=== PATIENT | male | born 1975 | race Caucasian/White ===

== ENCOUNTER 2017-04-06 11:31 | Emergency (ER) | payer MEDICARE ==
[~2017-04-06] VITALS: Ht 188 cm; Wt 140.0 kg
[~2017-04-06 11:31] MED LIST: BACT2OIN TOP; BACT800T5 PO; DOXE100C4 PO; METO25 PO; PALI234P IM; PERC5TAB12 PO
[2017-04-06 11:33] VITALS: BP 175/102; PULSE 96; RESP 16; TEMP 98.3; O2SAT 97
--- NOTE | 2017-04-06 12:51 | PD ---
HPI . right ear pain x few days Chief Complaint: ENT Complaint Time Seen by Provider: 12:50 Travel History International Travel<30 days: No Contact w/Intl Traveler<30days: No Traveled to known affect area: No History of Present Illness HPI 41 yr old male here with c/o right ear pain x several days. He reports trying to clean his ear out a few days ago and thinks he may have irritated something. Now he reports pain in the ear canal and tenderness to touch. He denies any fever, chills, or drainage. PFSH Past Medical History Autoimmune Disease: No Blood Disorders: No Cancer: No Cardiovascular Problems: No Chemotherapy: No Genitourinary: No Musculoskeletal: No Neurologic: No Psychiatric: No Respiratory: No Radiation Therapy: No Schizophrenia: Yes Past Surgical History Genitourinary Surgery: No Pacemaker: No Social History Alcohol Use: Yes (occ) Tobacco Use: Yes Substance Use: No Allergies-Medications (Allergen,Severity, Reaction): Coded Allergies: Penicillin (Verified Allergy, Severe, 06/20/16) Reported Meds & Prescriptions Reported Meds & Active Scripts Active Ofloxacin Otic Drops 0.3 % Drops 10 Drop RIGHT EAR DAILY 7 Days Bactrim DS (Sulfamethoxazole-Trimethoprim DS) 1 Tab Tab 1 Tab PO BID 10 Days Mupirocin 2% Oint (22 gm) (Mupirocin) 2 % Oin 1 Applic TOP BID 14 Days Percocet 5-325 mg (Oxycodone/Acetaminophen) 1 Tab 1 Tab PO Q4H PRN Reported Metoprolol Tartrate 25 mg (Metoprolol Tartrate) 25 Mg Tab 25 Mg PO DAILY Invega Sustenna (Paliperidone Palmitate) 234 Mg/1.5 Ml Inj 234 Mg IM Q28D *FOR INTRAMUSCULAR USE ONLY* Doxepin 100 mg (Doxepin HCl) 100 Mg Cap 200 Mg PO HS Review of Systems General / Constitutional: No: Fever Eyes: No: Visual changes HENT: Positive: Earache, No: Headaches Cardiovascular: No: Chest Pain or Discomfort Respiratory: No: Shortness of Breath Gastrointestinal: No: Abdominal Pain Genitourinary: No: Dysuria Musculoskeletal: No: Pain Skin: No Rash Neurologic: No: Weakness Psychiatric: No: Depression Endocrine: No: Polydipsia Hematologic/Lymphatic: No: Easy Bruising Physical Exam Narrative GENERAL: AAO x 3, no acute distress, Well-nourished, well-developed patient. SKIN: Warm and dry. No visible rashes or bruising. HEAD: Normocephalic and atraumatic. EYES: No scleral icterus. No injection or drainage. ENT: No nasal drainage noted. Mucous membranes pink. Airway patent. tenderness to right tragus, ++ edema in ear canal and erythema, TM appears normal NECK: Supple, trachea midline. No JVD. No lymphadenopathy CARDIOVASCULAR: Regular rate and rhythm without murmurs, gallops, or rubs. RESPIRATORY: Breath sounds equal bilaterally. No accessory muscle use. No rhonchi or rales. GASTROINTESTINAL: visual inspection normal EXTREMITIES: No cyanosis or edema. BACK: No obvious deformity. NEURO: CN II-12 intact, PSYCH: AAO x 3, normal affect. Data Data Last Documented VS Vital Signs Date Time Temp Pulse Resp B/P Pulse Ox O2 Delivery O2 Flow Rate FiO2 04/06/17 11:33 98.3 96 16 175/102 97 Room Air MDM Medical Decision Making Medical Screen Exam Complete: Yes Emergency Medical Condition: Yes Medical Record Reviewed: Yes Differential Diagnosis otitis externa, otitis media, mastoiditis Narrative Course 41 yr old male here with c/o right ear pain. He has known hx of HTN and will f/ u with his pcp regarding his elevated bp. On exam he has right otitis externa. I discussed treatment with him. We discussed $ of meds and he was upset. I advised him that I would prescribe the cheapest option I am aware of that would provide relief. Tylenol or Motrin PRN pain. Diagnosis Primary Impression: Otitis externa of right ear Qualified Code: H60.311 - Acute diffuse otitis externa of right ear Patient Instructions: General Instructions Additional Instructions: Please return to emergency department if your symptoms return or worsen. Follow up with your primary care provider. Take medications as prescribed. Take Tylenol or Motrin as needed for pain. Med/Other Pt SpecificInfo: Prescription(s) given Scripts Ofloxacin Otic Drops 0.3 % Drops10 Drop RIGHT EAR DAILY 7 Days Ref 0 Prov:Malissa Hathaway DO 04/06/17 Disposition: 01 DISCHARGE HOME Condition: Stable Litzy Mosqueda Apr 06, 2017 12:51
[2017-04-06] MEDS ORDERED: OFLO0.3D9 RIGHT EAR (12:56)
[2017-04-06 13:15] VITALS: BP 159/86; TEMP 97.8
[2017-04-06] MEDS ORDERED: PALI234P IM (13:27)
[2017-04-06] MEDS ORDERED: METO25TA6 PO (13:27)
[2017-04-06] MEDS ORDERED: DOXE100C4 PO (13:27)
== END 2017-04-06 13:15 | disposition home or self-care (01) ==
LOC: NEPK 11:31
DX: H60.91 Unspecified otitis externa, right ear (principal); I10 Essential (primary) hypertension; F20.9 Schizophrenia, unspecified; Z79.899 Other long term (current) drug therapy; Z88.0 Allergy status to penicillin; Z72.0 Tobacco use
CPT/HCPCS: 99283

== ENCOUNTER 2017-05-16 11:56 | Emergency (ER) | payer OTHER, MEDICARE ==
[~2017-05-16] VITALS: Ht 188 cm; Wt 131.5 kg
[~2017-05-16 11:56] MED LIST changes: -BACT2OIN TOP; -BACT800T5 PO; -METO25 PO; +METO25TA6 PO; +OFLO0.3D9 RIGHT EAR; -PERC5TAB12 PO
[2017-05-16 11:57] VITALS: BP 171/118; PULSE 112; RESP 24; TEMP 98.5; O2SAT 97
[2017-05-16] MEDS ORDERED: DIAZ5 PO (12:12)
[2017-05-16] MEDS ORDERED: BENZ0.5T PO (12:13)
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
[2017-05-16] MEDS ORDERED: IBUP-232 PO (13:15)
[2017-05-16] MEDS ORDERED: BACT800T5 PO (13:15)
== END 2017-05-16 14:14 | disposition home or self-care (01) ==
LOC: NEPD 11:56
DX: S80.01XA Contusion of right knee, initial encounter (principal); V43.62XA Car passenger injured in collision with other type car in traffic accident, initial encounter; Y92.414 Local residential or business street as the place of occurrence of the external cause; L03.111 Cellulitis of right axilla; I10 Essential (primary) hypertension
CPT/HCPCS: 73564; 99283; E0113

== ENCOUNTER 2017-06-28 10:36 | Emergency (ER) | payer MEDICARE ==
[~2017-06-28] VITALS: Ht 188 cm; Wt 115.0 kg
[~2017-06-28 10:36] MED LIST changes: +BACT800T5 PO; +BENZ0.5T PO; +DIAZ5 PO; +IBUP-232 PO; -OFLO0.3D9 RIGHT EAR
[2017-06-28 10:39] VITALS: BP 167/109; PULSE 84; RESP 15; TEMP 98.6; O2SAT 95
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
== END 2017-06-28 13:24 | disposition left against medical advice (07) ==
LOC: NEPD 10:36
DX: R60.0 Localized edema (principal); F17.200 Nicotine dependence, unspecified, uncomplicated
CPT/HCPCS: 99281

== ENCOUNTER 2018-03-11 09:12 | Emergency (ER) | payer MEDICARE ==
[~2018-03-11] VITALS: Ht 188 cm; Wt 100.0 kg
[~2018-03-11 09:12] MED LIST changes: -BACT800T5 PO; -DOXE100C4 PO; -IBUP-232 PO; +METO1TAB42 PO; -METO25TA6 PO
[2018-03-11 09:21] VITALS: BP 151/101; PULSE 75; RESP 16; TEMP 97.6; O2SAT 97
[2018-03-11] MEDS ORDERED: CLIN300C5 PO (09:44)
[2018-03-11] MEDS ORDERED: MAGICADU2 SWISH-SPIT (09:44)
--- NOTE | 2018-03-11 09:44 | PD ---
HPI Chief Complaint: Oral / Dental Pain or Problem Time Seen by Provider: 09:37 Travel History International Travel<30 days: No Contact w/Intl Traveler<30days: No Traveled to known affect area: No History of Present Illness HPI Patient presents to the ER for evaluation of left mandibular dental pain. Denies fevers, swelling, difficulty swallowing or neck pain. States for about a week. has not seen a dentist in some time. Endorses smoking. Thinks it's infected. States the pain is actually pretty mild but he's requesting antibiotics. PFSH Past Medical History Autoimmune Disease: No Blood Disorders: No Anxiety: Yes Cancer: No Cardiovascular Problems: Yes Chemotherapy: No Diminished Hearing: No Genitourinary: No Hypertension: Yes Musculoskeletal: No Neurologic: No Psychiatric: Yes Respiratory: No Radiation Therapy: No Schizophrenia: Yes Past Surgical History Genitourinary Surgery: No Pacemaker: No Other Surgery: Yes (RIGHT AXILLA CYST/ABSCESS I/D) Social History Alcohol Use: Yes (OCCASSIONAL) Tobacco Use: Yes (1.5 PPD) Substance Use: No Allergies-Medications (Allergen,Severity, Reaction): Coded Allergies: penicillin G (Unverified Allergy, Severe, RASH, 05/16/17) Reported Meds & Prescriptions Reported Meds & Active Scripts Active Magic Mouthwash Adult Liq (Multi-Ingredient Mouthwash/Gargle) 120 Ml Susp 5 Ml SWISH-SPIT ACHS Each 5mL contains: Nystatin 200,000units, Diphenhydramine 4.25mg, Viscous Lidocaine 10mg, Hawkins syrup 0.8 mL Clindamycin (Clindamycin HCl) 300 Mg Cap 300 Mg PO Q6H 10 Days Reported Benztropine (Benztropine Mesylate) 0.5 Mg Tab 1 Mg PO HS Valium (Diazepam) 5 Mg Tab 5 Mg PO BID PRN Invega Sustenna Inj (Paliperidone Palmitate) 234 Mg/1.5 Ml Inj 234 Mg IM Q28D Metoprolol Succinate ER 24 HR (Metoprolol Succinate) 25 Mg Tab 25 Mg PO DAILY Review of Systems Except as stated in HPI: all other systems reviewed are Neg Physical Exam Narrative GENERAL: WD/WN in nad. SKIN: Warm and dry. HEAD: Normocephalic. EYES: No scleral icterus. No injection or drainage. ENT: Left 2nd molar with deep altaf. No abscess seen. no trismus, no tongue protrusion. NECK: Supple, trachea midline. No JVD or lymphadenopathy. CARDIOVASCULAR: Regular rate and rhythm without murmurs, gallops, or rubs. RESPIRATORY: Breath sounds equal bilaterally. No accessory muscle use. GASTROINTESTINAL: Abdomen soft, non-tender, nondistended. MUSCULOSKELETAL: No cyanosis, or edema. BACK: Nontender without obvious deformity. No CVA tenderness. Data Data Last Documented VS Vital Signs Date Time Temp Pulse Resp B/P (MAP) Pulse Ox O2 Delivery O2 Flow Rate FiO2 03/11/18 10:09 03/11/18 09:21 97.6 75 16 97 Orders Orders Ed Discharge Order (03/11/18 09:45) MDM Medical Decision Making Medical Screen Exam Complete: Yes Emergency Medical Condition: Yes Differential Diagnosis Dental pain, apical abscess, jaw pain, dental carries. Narrative Course Patient roomed in ER, appears well. Offered pain medication in ED and declined. Stable for DC. Discussed smoking cessation and follow up with dentist. Diagnosis Primary Impression: Jaw pain Additional Impression: Dental caries Patient Instructions: Dental Abscess (GEN), General Instructions, How to Stop Smoking (DC) Med/Other Pt SpecificInfo: Prescription(s) given Scripts Ghzmsaso-Kadycvhgccyavbl-Xnjjtgepk Liq (Magic Mouthwash Adult Liq) 120 Ml Susp 5 ML SWISH-SPIT ACHS for Mouth sores, #120 ML 0 Refills Each 5mL contains: Nystatin 200,000units, Diphenhydramine 4.25mg, Viscous Lidocaine 10mg, Hawkins syrup 0.8 mL Prov: Ori Sapp MD 03/11/18 Clindamycin (Clindamycin) 300 Mg Cap 300 MG PO Q6H for Infection for 10 Days, #40 CAP 0 Refills Prov: Ori Sapp MD 03/11/18 Disposition: 01 DISCHARGE HOME Condition: Stable Ori Sapp MD Mar 11, 2018 09:44
== END 2018-03-11 10:09 | disposition home or self-care (01) ==
LOC: NEPD 09:12
DX: R68.84 Jaw pain (principal); K02.9 Dental caries, unspecified; F17.200 Nicotine dependence, unspecified, uncomplicated; F20.9 Schizophrenia, unspecified; I10 Essential (primary) hypertension
CPT/HCPCS: 99283